=== PATIENT | female | born 1985 | race Caucasian/White ===

== ENCOUNTER → 2016-06-26 | Outpatient (CLI) | payer OTHER | LOC: MW.CHFP 12:25 | PROVIDERS: ATTEND Student in an Organized Health Care Education/Training Program | DX: J02.9 Acute pharyngitis, unspecified (principal); R52 Pain, unspecified | CPT/HCPCS: 87081; 87804; 87880 ==

== ENCOUNTER 2017-09-14 06:56 | Day surgery (SDC) | payer OTHER ==
[2017-09-14] MEDS ORDERED: Lactated Ringers 1,000 ML IV SCH (07:00)
[2017-09-14] MEDS ORDERED: Midazolam 1 MG/ML 2 ML SDV ONE (07:26)
[2017-09-14] MEDS ORDERED: Propofol 200 MG/20 ML SDV ONE (07:26)
[2017-09-14] MEDS ORDERED: fentaNYL 100 MCG/2 ML SDV ONE ×2 (07:26→07:59)
[2017-09-14] MEDS ORDERED: Lidocaine 2% 5 ML SDV ONE (07:28)
--- NOTE | 2017-09-14 07:28 | PCM.PREANE ---
Preanesthetic Assessment - Anesthesia/Transfusion/Family Hx Anesthesia History: Prior Anesthesia Without Reaction Family History of Anesthesia Reaction: No Transfusion History: No Prior Transfusion(s) Intubation History: Unknown - Review of Systems General: No Symptoms Pulmonary: No Symptoms Cardiovascular: No Symptoms Gastrointestinal: No Symptoms Neurological: No Symptoms Other: Reports: None - Physical Assessment Height: 1.74 m Weight: 75.75 kg ASA Class: 1 Mental Status: Alert & Oriented x3 Airway Class: Mallampati = 1 Dentition: Reports: Normal Dentition Thyro-Mental Finger Breadths: 2 Mouth Opening Finger Breadths: 3 ROM/Head Extension: Full Lungs: Clear to Auscultation, Normal Respiratory Effort Cardiovascular: Regular Rate, Regular Rhythm - Lab Values: Laboratory Last Values WBC 9.28 K/uL (4.0-11.0) 09/13/17 22:07 RBC 4.21 M/uL (4.30-5.90) L 09/13/17 22:07 Hgb 13.9 g/dL (12.0-16.0) 09/13/17 22:07 Hct 41.5 % (36.0-46.0) 09/13/17 22:07 MCV 98.6 fL (80.0-98.0) H 09/13/17 22:07 MCH 33.0 pg (27.0-32.0) H 09/13/17 22:07 MCHC 33.5 g/dL (31.0-37.0) 09/13/17 22:07 RDW Std Deviation 44.8 fl (28.0-62.0) 09/13/17 22:07 RDW Coeff of Soledad 12 % (11.0-15.0) 09/13/17 22:07 Plt Count 255 K/uL (150-400) 09/13/17 22:07 MPV 10.70 fL (7.40-12.00) 09/13/17 22:07 Nucleated RBC % 0.0 /100WBC 09/13/17 22:07 Nucleated RBCs # 0 K/uL 09/13/17 22:07 HCG, Qual NEGATIVE (NEG) 09/13/17 22:07 - Allergies Allergies/Adverse Reactions: Allergies Allergy/AdvReac Type Severity Reaction Status Date / Time No Known Allergies Allergy Verified 09/09/17 08:42 - Blood Blood Available: No - Anesthesia Plan Pre-Op Medication Ordered: None - Acknowledgements Anesthesia Type Planned: MAC Pt an Appropriate Candidate for the Planned Anesthesia: Yes Alternatives and Risks of Anesthesia Discussed w Pt/Guardian: Yes Pt/Guardian Understands and Agrees with Anesthesia Plan: Yes PreAnesthesia Questionnaire 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 benign tumor from her neck) - SUBSTANCE USE Smoking Status *Q: Former Smoker Recreational Drug Use History: No - HOME MEDS Home Medications: Home Meds Multivitamin [Multivitamins] 1 tab PO DAILY 09/09/17 [History] - CURRENT (IN HOUSE) MEDS Current Meds: Current Medications Lactated Ringer's (Ringers, Lactated) 1,000 mls @ 100 mls/hr IV ASDIRECTED JON
[2017-09-14] MEDS ORDERED: Ketorolac 30 MG/ML SDV ONE (08:17)
--- NOTE | 2017-09-14 08:35 | PCM.OPNOTE ---
- General Post-Op/Procedure Note Date of Surgery/Procedure: 09/14/17 Operative Procedure(s): LEEP Findings: Entire transformation examined by colposcopy findings of extensive HPV changes, with areas of acetowhite epithelium diffusely, at 12 o'clock friable AWE. Pre Op Diagnosis: ANIYAH II Post-Op Diagnosis: Same Anesthesia Technique: MAC Primary Surgeon: Caridad Ochoa Anesthesia Provider: Bridget Elise Pathology: ectocervix 12-7 o'clock labeled at 12 o'clock; ectocervix 7- 12o'clock, labeled at 9 o'clock, endocervical specimen, endocervical curettage Fluid Replacement, Intraop: 800 EBL in mLs: 10 Complications: None Known. Condition: Good
--- NOTE | 2017-09-14 08:59 | PCM.POSTAN ---
POST ANESTHESIA ASSESSMENT - MENTAL STATUS Mental Status: Alert, Oriented - RESPIRATORY Respiratory Status: Respiratory Rate WNL, Airway Patent, O2 Saturation Stable - CARDIOVASCULAR CV Status: Pulse Rate WNL - GASTROINTESTINAL GI Status: No Symptoms - PAIN Pain Score: 0 - POST OP HYDRATION Hydration Status: Adequate & Stable - OBSERVATIONS Free Text/Narrative:: no anesthesia problems
--- NOTE | 2017-09-14 10:21 | PCM48HPAN ---
Post Anesthesia Note - EVALUATION WITHIN 48HRS OF ANESTHETIC Vital Signs in Normal Range: Yes Patient Participated in Evaluation: Yes Respiratory Function Stable: Yes Airway Patent: Yes Cardiovascular Function Stable: Yes Hydration Status Stable: Yes Pain Control Satisfactory: Yes Nausea and Vomiting Control Satisfactory: Yes Mental Status Recovered: Yes Resp Rate: 10 - COMMENTS/OBSERVATIONS Free Text/Narrative:: no anesthesia problems
--- NOTE | 2017-09-14 13:11 | OR ---
SURGEON: Caridad Ochoa M.D. DATE OF PROCEDURE: 09/14/2017 PREOPERATIVE DIAGNOSIS: Cervical intraepithelial neoplasia 2. POSTOPERATIVE DIAGNOSIS: Cervical intraepithelial neoplasia 2. PROCEDURE: Loop electrode excisional procedure. ANESTHESIA: MAC with cervical block. ESTIMATED BLOOD LOSS: Less than 10 mL. FLUIDS: 800 mL of crystalloid. FINDINGS: Under colposcopic examination, there was a large ectropion well-defined with extensive HPV changes and diffuse intermittent areas of acetowhite epithelium throughout an area of friability from 11 o'clock to 1 o'clock. COMPLICATIONS: None known. DISPOSITION: Stable to recovery. BRIEF HISTORY: This is a 32-year-old female, she presented with low-grade SOFIYA Pap. Colposcopy showed ANIYAH 2. Discussed expected management, ablated for excisional procedure. She would like to proceed with a loop electrode excisional procedure with risks discussed including bleeding, infection, and potential for cervical incompetence with future , risk of injury to surrounding organs. Understanding these risks, she does desire to proceed. DESCRIPTION OF PROCEDURE: With the patient in dorsal lithotomy position, under adequate IV sedation, the LEEP speculum was placed into the vagina. The cervix was treated with dilute acetic acid and all this was initiated after an appropriate time-out was held. The cervix was inspected with the colposcope under low and high power and findings were as noted above. A total of 10 mL of 1% lidocaine with epinephrine were injected at 12, 5, and 7 o'clock position of the cervix. The cervix was grasped at 12 o'clock. Vaginal sidewall retractor, which was covered and non- conducting material as well as the LEEP speculum was placed into the vagina with excellent visualization of the cervix. Due to the large size of the ectropion, I did have to take the LEEP into specimens starting at the 12 o'clock position and proceeding downwards. I took the first specimen labeled from 12 to 7 o'clock incorporating the edge of the transition zone from 12 o'clock to 7 o'clock. The second specimen was taken starting at 12 o'clock and proceeding downwards incorporating the area from 7 o'clock to 12 o'clock and labeled as such. Marked at 9 o'clock. The first specimen was marked at 12 o'clock. A very small specimen was taken of the endocervix with a small LEEP loop and all of these were taken with the cutting and setting of 60, and endocervical curettage was performed and collected with a Cytobrush changing the setting on the electrical system to pure coag, setting of 60. The base of the LEEP site was cauterized with complete hemostasis. It was also treated with Monsel's solution, and final sponge, needle, and instrument counts were reported as correct. There were no known complications. The patient was transferred to recovery in good condition. Specimens are ectocervix from 12 to 7 o'clock, labeled at 12 o'clock; ectocervix from 7 to 12 o'clock, labeled at 9 o'clock; endocervix and endocervical curettings. ERICA / MARILEE /[id number]
== END 2017-09-14 10:30 | disposition home or self-care (01) ==
LOC: MW.SDS 06:56
PROVIDERS: ATTEND Obstetrics & Gynecology
DX: N87.1 Moderate cervical dysplasia (principal); N72 Inflammatory disease of cervix uteri; Z91.011 Allergy to milk products; Z91.09 Other allergy status, other than to drugs and biological substances
CPT/HCPCS: 36415; 57522; 84703; 85027; J1885; J2250; J3010; J7120; 00940; 88305; 88307; J2704

== ENCOUNTER 2018-11-22 16:29 | Emergency (ER) | payer OTHER ==
[2018-11-22] MEDS ORDERED: Sodium Chloride 0.9% 2.5 ML Syringe FLUSH PRN (16:42)
[2018-11-22] MEDS ORDERED: Sodium Chloride 0.9% 1,000 ML IV ONE (16:42)
[2018-11-22] MEDS ORDERED: Sodium Chloride 0.9% 10 ML Syringe FLUSH PRN (16:42)
--- NOTE | 2018-11-22 16:42 | EDM.PDOC ---
ED HPI GENERAL MEDICAL PROBLEM - General Chief Complaint: Cardiovascular Problem Stated Complaint: HIGH BP Time Seen by Provider: 11/22/18 16:41 Source of Information: Reports: Patient History Limitations: Reports: No Limitations - History of Present Illness INITIAL COMMENTS - FREE TEXT/NARRATIVE: HISTORY AND PHYSICAL: History of present illness: Patient is a 33-year-old female presents to the ED with complaint of high blood pressure. She states she was seeing Dr. Quintanilla this morning for follow up on a breast cyst and her blood pressure was elevated to 190/60. She states she hasn' t been feeling well recently. Has had a headache on and off for a few days. She states she currently has a mild headache and mild chest pain as well as a tingling in to her left arm. She has felt her heart racing occasionally. She denies shortness of breath, nausea, vomiting, abdominal pain, diarrhea, visual changes. She denies significant past medical history. Review of systems: As per history of present illness and below otherwise all systems reviewed and negative. Past medical history: As per history of present illness and as reviewed below otherwise noncontributory. Surgical history: As per history of present illness and as reviewed below otherwise noncontributory. Social history: No reported history of drug or alcohol abuse. Family history: As per history of present illness and as reviewed below otherwise noncontributory. Physical exam: General: Patient sitting comfortably in no acute distress and nontoxic appearing HEENT: Atraumatic, normocephalic, pupils reactive, negative for conjunctival pallor or scleral icterus, mucous membranes moist, throat clear, neck supple, nontender, trachea midline. No meningeal signs. Lungs: Clear to auscultation, breath sounds equal bilaterally, chest nontender. Heart: S1S2, regular, negative for clicks, rubs, or overt murmur. Abdomen: Soft, nondistended, nontender. Negative for masses or hepatosplenomegaly. Negative for costovertebral tenderness. No rigidity, rebound , guarding. Pelvis: Stable nontender. Genitourinary: Deferred. Rectal: Deferred. Extremities: Atraumatic, negative for cords or calf pain. Neurovascular unremarkable. Neuro: Awake, alert, oriented. Cranial nerves II through XII unremarkable. Cerebellum unremarkable. Motor and sensory unremarkable throughout. Exam nonfocal. Notes: Elevated blood pressure resolved on it's own after patient resting. Diagnostics: CBC, CMP, troponin, PT/INR, EKG, CXR Therapeutics: Declined aspirin Prescriptions: Impression: Hypertension, atypical chest pain Plan: Follow up with primary care provider Return to ED as needed as discussed Definitive disposition and diagnosis as appropriate pending reevaluation and review of above. 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 benign tumor from her neck) ED ROS GENERAL - Review of Systems Review Of Systems: ROS reveals no pertinent complaints other than HPI. ED EXAM, GENERAL - Physical Exam Exam: See Below (see dictation) Course - Vital Signs Last Recorded V/S: Last Vital Signs Temp 98.2 F 11/22/18 16:35 Pulse 74 11/22/18 17:28 Resp 18 11/22/18 17:28 BP 130/82 11/22/18 17:28 Pulse Ox 98 11/22/18 17:28 - Orders/Labs/Meds Orders: Active Orders 24 hr Category Date Time Status EKG Documentation Completion [RC] STAT Care 11/22/18 16:42 Active Sodium Chloride 0.9% [Saline Flush] Med 11/22/18 16:42 Active 10 ml FLUSH ASDIRECTED PRN Sodium Chloride 0.9% [Saline Flush] Med 11/22/18 16:42 Active 2.5 ml FLUSH ASDIRECTED PRN Saline Lock Insert [OM.PC] Stat Oth 11/22/18 16:42 Ordered Medication Orders Sodium Chloride (Saline Flush) 10 ml FLUSH ASDIRECTED PRN PRN Reason: Keep Vein Open Last Admin: 11/22/18 16:56 Dose: 10 ml Sodium Chloride (Saline Flush) 2.5 ml FLUSH ASDIRECTED PRN PRN Reason: Keep Vein Open Last Admin: 11/22/18 16:56 Dose: 2.5 ml Labs: Laboratory Tests 11/22/18 11/22/18 11/22/18 Range/Units 16:55 16:55 16:55 WBC 8.21 (4.0-11.0) K/uL RBC 4.29 L (4.30-5.90) M/uL Hgb 14.3 (12.0-16.0) g/dL Hct 40.9 (36.0-46.0) % MCV 95.3 (80.0-98.0) fL MCH 33.3 H (27.0-32.0) pg MCHC 35.0 (31.0-37.0) g/dL RDW Std Deviation 39.8 (28.0-62.0) fl RDW Coeff of Soledad 12 (11.0-15.0) % Plt Count 247 (150-400) K/uL MPV 10.10 (7.40-12.00) fL Neut % (Auto) 50.9 (48.0-80.0) % Lymph % (Auto) 38.9 (16.0-40.0) % [place] % (Auto) 8.4 (0.0-15.0) % Eos % (Auto) 1.7 (0.0-7.0) % Baso % (Auto) 0.1 (0.0-1.5) % Neut # (Auto) 4.2 (1.4-5.7) K/uL Lymph # (Auto) 3.2 H (0.6-2.4) K/uL [place] # (Auto) 0.7 (0.0-0.8) K/uL Eos # (Auto) 0.1 (0.0-0.7) K/uL Baso # (Auto) 0.0 (0.0-0.1) K/uL INR 1.06 Sodium 140 (136-145) mmol/L Potassium 3.6 (3.5-5.1) mmol/L Chloride 105 (98-107) mmol/L Carbon Dioxide 24.9 (21.0-32.0) mmol/L BUN 11 (7.0-18.0) mg/dL Creatinine 0.8 (0.6-1.0) mg/dL Est Cr Clr Drug Dosing 102.58 mL/min Estimated GFR (MDRD) > 60.0 ml/min Glucose 103 (74-106) mg/dL Calcium 9.2 (8.5-10.1) mg/dL Total Bilirubin 0.3 (0.2-1.0) mg/dL AST 18 (15-37) IU/L ALT 20 (14-63) IU/L Alkaline Phosphatase 81 (46-116) U/L Troponin I < 0.050 (0.000-0.056) ng/mL Total Protein 7.0 (6.4-8.2) g/dL Albumin 3.9 (3.4-5.0) g/dL Globulin 3.1 (2.6-4.0) g/dL Albumin/Globulin Ratio 1.3 (0.9-1.6) Meds: Medications Generic Name Dose Route Start Last Admin Trade Name Freq PRN Reason Stop Dose Admin Sodium Chloride 10 ml 11/22/18 16:42 11/22/18 16:56 Saline Flush FLUSH 10 ml ASDIRECTED PRN Administration Keep Vein Open Sodium Chloride 2.5 ml 11/22/18 16:42 11/22/18 16:56 Saline Flush FLUSH 2.5 ml ASDIRECTED PRN Administration Keep Vein Open Discontinued Medications Generic Name Dose Route Start Last Admin Trade Name Freq PRN Reason Stop Dose Admin Sodium Chloride 1,000 mls @ 999 mls/hr 11/22/18 16:42 11/22/18 16:55 Normal Saline IV 11/22/18 17:42 999 mls/hr BOLUS ONE Administration Departure - Departure Time of Disposition: 18:00 Disposition: Home, Self-Care 01 Condition: Good Clinical Impression: High blood pressure, Atypical chest pain Referrals: PCP,Unknown [Primary Care Provider] - Forms: ED Department Discharge Additional Instructions: The following information is given to patients seen in the emergency department who are being discharged to home. This information is to outline your options for follow-up care. We provide all patients seen in our emergency department with a follow-up referral. The need for follow-up, as well as the timing and circumstances, are variable depending upon the specifics of your emergency department visit. If you don't have a primary care physician on staff, we will provide you with a referral. We always advise you to contact your personal physician following an emergency department visit to inform them of the circumstance of the visit and for follow-up with them and/or the need for any referrals to a consulting specialist. The emergency department will also refer you to a specialist when appropriate. This referral assures that you have the opportunity for follow-up care with a specialist. All of these measure are taken in an effort to provide you with optimal care, which includes your follow-up. Under all circumstances we always encourage you to contact your private physician who remains a resource for coordinating your care. When calling for follow-up care, please make the office aware that this follow-up is from your recent emergency room visit. If for any reason you are refused follow-up, please contact the [facility] Emergency Department at and asked to speak to the emergency department charge nurse. [facility] [address] [place] [id number] [address] Follow up with primary care provider Return to ED as needed as discussed - My Orders Last 24 Hours: My Active Orders 11/22/18 16:42 EKG Documentation Completion [RC] STAT Sodium Chloride 0.9% [Saline Flush] 10 ml FLUSH ASDIRECTED PRN Sodium Chloride 0.9% [Saline Flush] 2.5 ml FLUSH ASDIRECTED PRN Saline Lock Insert [OM.PC] Stat - Assessment/Plan Last 24 Hours: My Active Orders 11/22/18 16:42 EKG Documentation Completion [RC] STAT Sodium Chloride 0.9% [Saline Flush] 10 ml FLUSH ASDIRECTED PRN Sodium Chloride 0.9% [Saline Flush] 2.5 ml FLUSH ASDIRECTED PRN Saline Lock Insert [OM.PC] Stat
--- NOTE | 2018-11-22 17:35 | CR ---
INDICATION: High BP TECHNIQUE: Chest 1 view. COMPARISON: None. FINDINGS: Cardiovascular and mediastinum: Heart size and vasculature are normal in caliber and appearance. Mediastinum is within normal limits. Lungs and pleural space: Lungs are clear. No sign of infiltrate or mass. No sign of pleural effusion. No pneumothorax. Bones and soft tissues: No significant findings. IMPRESSION: Unremarkable chest. Dictated by: Elpidio Springer MD @ 11/22/2018 17:34:52 (Electronically Signed)
[2018-11-22 17:50] LABS: BLOOD UREA NITROGEN,BUN 11 mg/dL (7.0-18.0); CARBON DIOXIDE,CO2 24.9 mmol/L (21.0-32.0); CHLORIDE,CL 105 mmol/L (98-107); GLUCOSE RANDOM 103 mg/dL (74-106); POTASSIUM,K 3.6 mmol/L (3.5-5.1); SODIUM,NA 140 mmol/L (136-145)
== END 2018-11-22 18:13 | disposition home or self-care (01) ==
LOC: MW.ED 16:29
DX: I10 Essential (primary) hypertension (principal); R07.89 Other chest pain
CPT/HCPCS: 36415; 71045; 80053; 84484; 85025; 85610; 93005; 96360; 99284; J7040

== ENCOUNTER 2019-04-13 08:32 | Emergency (ER) | payer OTHER ==
[2019-04-13] MEDS ORDERED: Sodium Chloride 0.9% 1,000 ML IV ONE (09:02)
[2019-04-13] MEDS ORDERED: Alum Hydrox/Mag Hydrox/Simeth 15 ML, Lidocaine 2% 5 ML PO ONE ×2 (09:02)
[2019-04-13] MEDS ORDERED: Dexamethasone 4 MG Tab PO ONE (09:06)
[2019-04-13] MEDS ORDERED: Ondansetron 4 MG/2 ML SDV IVPUSH ONE (09:18)
[2019-04-13] MEDS ORDERED: Ondansetron 4 MG/2 ML SDV ONE (09:18)
[2019-04-13 09:51] LABS: BLOOD UREA NITROGEN,BUN 7 mg/dL (7.0-18.0); CARBON DIOXIDE,CO2 28.4 mmol/L (21.0-32.0); CHLORIDE,CL 100 mmol/L (98-107); GLUCOSE RANDOM 116 mg/dL (74-106); POTASSIUM,K 3.7 mmol/L (3.5-5.1); SODIUM,NA 136 mmol/L (136-145)
[2019-04-13 10:04] LABS: ACETAMINOPHEN <2.0 ug/mL
[2019-04-13] MEDS ORDERED: Iopamidol 755 MG/ML 500 ML Multipack Bottle IVPUSH STA (10:42)
--- NOTE | 2019-04-13 11:49 | CT ---
INDICATION: Severe pharyngitis. Marked leukocytosis. Upper tracheal/neck discomfort. Lemierre syndrome? TECHNIQUE: CT images were obtained through the neck following administration of intravenous contrast. COMPARISON: None. FINDINGS: Markedly enlarged palatine and lingual tonsils demonstrating striated enhancement. Mild associated narrowing of the oropharyngeal airway. The parapharyngeal fat is preserved. No retropharyngeal effusion. No discrete peripherally enhancing fluid collection to suggest abscess. The nasopharynx and larynx are widely patent without enhancing lesions. The parotid and submandibular glands are relatively symmetric in size without enhancing lesions or calcifications. Enlarged bilateral cervical lymph nodes measuring up to 21 mm on the right and left at the level IIa norman station. The thyroid gland is normal in size and demonstrates homogeneous enhancement. Limited images through the brain are without intracranial mass effect. The internal jugular veins are widely patent. Mild right maxillary and right ethmoid sinus mucosal thickening. The mastoid air cells are clear. Temporomandibular joint degenerative changes bilaterally. Mild reversal of the cervical lordosis at C4-5, potentially related to patient position or muscle spasm. The visualized lungs are without concerning opacities. IMPRESSION: 1. Markedly enlarged palatine and lingual tonsils demonstrating striated enhancement, compatible with tonsillitis. Mild associated narrowing of the oropharyngeal airway. No discrete fluid collection to suggest abscess. 2. Enlarged bilateral cervical lymph nodes, notably at the level IIa norman stations, are nonspecific though likely reactive. 3. The internal jugular veins are widely patent. Please note that all CT scans at this facility use dose modulation, iterative reconstruction, and/or weight-based dosing when appropriate to reduce radiation dose to as low as reasonably achievable. Dictated by Raimundo Sidhu MD @ Apr 13 2019 11:37AM Signed by Dr. Raimundo Sidhu @ Apr 13 2019 11:48AM
--- NOTE | 2019-04-13 12:25 | EDM.PDOC ---
ED HPI GENERAL MEDICAL PROBLEM - General Chief Complaint: ENT Problem Stated Complaint: STREP THROAT Time Seen by Provider: 04/13/19 08:36 - History of Present Illness INITIAL COMMENTS - FREE TEXT/NARRATIVE: HPI 34-year-old female presents for evaluation of 3 days of sore throat, pain on swallowing, and intermittent fevers that are NSAID responsive. New sexual partner as of 6 months, low-no concern for STDs. No recent travel. No immunocompromise. Vaccinations up-to-date. No headaches or changes in vision or hearing. Patient is been alternating ibuprofen and acetaminophen Q2 hours (4 hours between doses of either). M/S/F/SocHx notable for: please see HPI; remainder reviewed with patient and in chart. ROS: Negative constitutional, eye, cardiovascular, pulmonary, GI, , MSK, skin , neurologic, psychiatric, endocrine unless noted in the HPI. Exam HR 102, RR 18, BP 125 or 79, T 36.7C, SaO2 9 & room air. Gen: Pleasant, non-toxic appearing, resting in mild-moderate discomfort. HEENT: Normocephalic, atraumatic. * Ears - TMs clear bilaterally, bilateral external auditory canals without erythema, inflammation, or swelling, bilateral mastoids nontender without overlying erythema, swelling, or warmth. * Eyes - Bilateral eyes without injection, swelling, or discharge, no proptosis or periorbital erythema, swelling, warmth, or tenderness. * Mouth - Anterior oropharynx with MMM, no lesions appreciated, floor of the mouth is soft and without swelling. Posterior oropharynx bilateral tonsillar arches/pillars with exudate and mild surrounding erythema, uvula midline, minimal and symmetric tonsillar swelling. * Nose - Nares without crusting or discharge. * Neck - Neck supple without posterior or anterior cervical chain lymphadenopathy bilaterally. Resp: Clear to auscultation bilaterally, normal work of breathing without accessory muscle usage. Card: Regular rate and rhythm with no murmurs, rubs or gallops. Extremities warm and well perfused. GI: Non-tender to palpation throughout all quadrants, no masses or organomegaly appreciated. : Deferred MSK: No visible deformities, strength and tone without visually appreciable deficit. Neuro: alert and oriented 3, no facial asymmetry, vision and hearing WNL. Heme/Lymph: Deferred Skin: Normal color with no visible lesions (other than noted above). Psych: Mood and affect appropriate. Labs / Imaging (pertinent): negative group a strep screen. Influenza A & B negative. Monospot negative WBC 23.4, HB 14.8, sodium 136, potassium 3.7, AST 30, ALT 36. PT/INR 1.07, PTT 33.7, acetaminophen <2.0. CT neck with contrast: 1. Markedly enlarged palatine and lingual tonsils demonstrating striated enhancement, compatible with tonsillitis. Mild associated narrowing of the oropharyngeal airway. No discrete fluid collection to suggest abscess. 2 Enlarged bilateral cervical lymph nodes, notably at the level [place] norman stations, are nonspecific though likely reactive. 3. The internal jugular veins are widely patent. MDM Previous chart, nursing note, labs, imaging, and vitals reviewed. A: 34-year-old female presents for evaluation of 3 days of sore throat, pain on swallowing, and intermittent fevers that are NSAID responsive. DDx: pharyngitis (HSV vs viral NOS vs GAS vs gonoccocal vs bacterial NOS)], EBV , HIV[ candidiasi, sinusitis (bacterial, viral), peritonsillar cellulitis, WEB [employer]PLICATION[employer] ARCHITECT, RPA, Pravin's angina, epiglottitis. Evaluation: patient uncomfortable well compensated appearance, notable bilateral tonsillar exudate without physical exam findings of further complications. No identifiable high-risk features on sexual history for gonococcal pharyngitis, herpes, or HIV. Lesions are not visually consistent with candidiasis. Low suspicion for peritonsillar cellulitis or abscess given the absence of asymmetric swelling or uvular deviation, RPA is unlikely as the patient can comfortably flex and extend their neck and swallow without difficulty. As phonation is intact and breathing is unlabored doubt epiglottitis. The floor of the mouth is without evidence of Pravin's angina. Note was made of the significant leukocytosis and tonsillar swelling, imaging was obtained to evaluate for Lemierres disease (as well further convocations), this was notable for enlarged palatine and lingual tonsils with striated enhancement without evidence of abscess, Lemierres disease, Ludgwigs angina, or tracheitis. No evidence of septicemia by exam, lactic acid, and clinical trajectory. Due to concerns for the patient possibly taking excessive acetaminophen liver enzymes were checked as well as acetaminophen levels, these were within normal limits. ED Course: No clinically significant changes. Patient given 12 mg dexamethasone PO and 1 L NS (patient took ibuprofen and acetaminophen prior to arrival). Patient or significant improvement in symptoms with these interventions. Disposition: Discharge with return to care as needed. Return to care indications provided. Strike to use scheduled ibuprofen and acetaminophen and continue amoxicillin. Impression: Pharyngitis. throat Pain Score (Numeric/FACES): 7 - Related Data Allergies Allergy/AdvReac Type Severity Reaction Status Date / Time No Known Allergies Allergy Verified 04/13/19 08:39 Home Meds: Home Meds Multivitamin [Multivitamins] 1 tab PO DAILY 09/09/17 [History] Amoxicillin/Potassium Clav [Amox-Clav 875-125 mg Tablet] 1 tab PO BID 04/13/19 [ History] Past Medical History HEENT History: Reports: None Cardiovascular History: Reports: None Respiratory History: Reports: None Gastrointestinal History: Reports: None Genitourinary History: Reports: None TOMOGRAPHIC TECH History: Reports: Polycystic Ovaries Musculoskeletal History: Reports: None Neurological History: Reports: None Psychiatric History: Reports: None Endocrine/Metabolic History: Reports: None Hematologic History: Reports: None Immunologic History: Reports: None Oncologic (Cancer) History: Reports: None Dermatologic History: Reports: Eczema - Infectious Disease History Infectious Disease History: Reports: Chicken Pox - Past Surgical History Head Surgeries/Procedures: Reports: None HEENT Surgical History: Reports: None Cardiovascular Surgical History: Reports: None Respiratory Surgical History: Reports: None GI Surgical History: Reports: None Female Surgical History: Reports: None Endocrine Surgical History: Reports: None Neurological Surgical History: Reports: None Musculoskeletal Surgical History: Reports: Other (See Below) Other Musculoskeletal Surgeries/Procedures:: tumor removed from neck Oncologic Surgical History: Reports: None Dermatological Surgical History: Reports: Other (See Below) Social & Family History - Family History Family Medical History: Noncontributory - Tobacco Use Smoking Status *Q: Current Some Day Smoker Years of Tobacco use: 5 Packs/Tins Daily: 0.1 - Caffeine Use Caffeine Use: Reports: Tea - Recreational Drug Use Recreational Drug Use: No ED ROS GENERAL - Review of Systems Review Of Systems: See Below ED EXAM, GENERAL - Physical Exam Exam: See Below Course - Vital Signs Last Recorded V/S: Last Vital Signs Temp 36.7 C 04/13/19 08:40 Pulse 102 H 04/13/19 08:40 Resp 18 04/13/19 08:40 BP 125/79 04/13/19 08:40 Pulse Ox 99 04/13/19 08:40 - Orders/Labs/Meds Orders: Active Orders 24 hr Category Date Time Status CULTURE STREP A CONFIRMATION [] Stat Lab 04/13/19 09:21 Results STREP SCRN A RAPID W CULT CONF [] Stat Lab 04/13/19 09:21 Results Labs: Laboratory Tests 04/13/19 04/13/19 04/13/19 Range/Units 09:13 09:13 09:13 WBC 23.42 H (4.0-11.0) K/uL RBC 4.49 (4.30-5.90) M/uL Hgb 14.8 (12.0-16.0) g/dL Hct 43.3 (36.0-46.0) % MCV 96.4 (80.0-98.0) fL MCH 33.0 H (27.0-32.0) pg MCHC 34.2 (31.0-37.0) g/dL RDW Std Deviation 46.2 (28.0-62.0) fl RDW Coeff of Soledad 13 (11.0-15.0) % Plt Count 238 (150-400) K/uL MPV 10.60 (7.40-12.00) fL Add Manual Diff YES Neutrophils % (Manual) 78 (48.0-80.0) % Band Neutrophils % 4 % Lymphocytes % (Manual) 9 L (16.0-40.0) % Monocytes % (Manual) 9 (0.0-15.0) % Nucleated RBC % 0.0 /100WBC Absolute Seg Neuts 18.3 H (1.4-5.7) Band Neutrophils # 0.9 Lymphocytes # (Manual) 2.1 (0.6-2.4) Monocytes # (Manual) 2.1 H (0.0-0.8) Nucleated RBCs # 0 K/uL INR APTT (18.6-31.3) SEC Lactate (0.20-2.00) mmol/L Sodium 136 (136-145) mmol/L Potassium 3.7 (3.5-5.1) mmol/L Chloride 100 (98-107) mmol/L Carbon Dioxide 28.4 (21.0-32.0) mmol/L BUN 7 (7.0-18.0) mg/dL Creatinine 0.9 (0.6-1.0) mg/dL Est Cr Clr Drug Dosing 90.31 mL/min Estimated GFR (MDRD) > 60.0 ml/min Glucose 116 H (74-106) mg/dL Calcium 8.9 (8.5-10.1) mg/dL AST (15-37) IU/L ALT (14-63) IU/L Acetaminophen ug/mL Monoscreen NEGATIVE (NEG) 04/13/19 04/13/19 04/13/19 Range/Units 09:31 09:31 09:31 WBC (4.0-11.0) K/uL RBC (4.30-5.90) M/uL Hgb (12.0-16.0) g/dL Hct (36.0-46.0) % MCV (80.0-98.0) fL MCH (27.0-32.0) pg MCHC (31.0-37.0) g/dL RDW Std Deviation (28.0-62.0) fl RDW Coeff of Soledad (11.0-15.0) % Plt Count (150-400) K/uL MPV (7.40-12.00) fL Add Manual Diff Neutrophils % (Manual) (48.0-80.0) % Band Neutrophils % % Lymphocytes % (Manual) (16.0-40.0) % Monocytes % (Manual) (0.0-15.0) % Nucleated RBC % /100WBC Absolute Seg Neuts (1.4-5.7) Band Neutrophils # Lymphocytes # (Manual) (0.6-2.4) Monocytes # (Manual) (0.0-0.8) Nucleated RBCs # K/uL INR 1.07 APTT 33.7 H (18.6-31.3) SEC Lactate (0.20-2.00) mmol/L Sodium (136-145) mmol/L Potassium (3.5-5.1) mmol/L Chloride (98-107) mmol/L Carbon Dioxide (21.0-32.0) mmol/L BUN (7.0-18.0) mg/dL Creatinine (0.6-1.0) mg/dL Est Cr Clr Drug Dosing mL/min Estimated GFR (MDRD) ml/min Glucose (74-106) mg/dL Calcium (8.5-10.1) mg/dL AST 30 (15-37) IU/L ALT 36 (14-63) IU/L Acetaminophen <2.0 ug/mL Monoscreen (NEG) 04/13/19 Range/Units 10:40 WBC (4.0-11.0) K/uL RBC (4.30-5.90) M/uL Hgb (12.0-16.0) g/dL Hct (36.0-46.0) % MCV (80.0-98.0) fL MCH (27.0-32.0) pg MCHC (31.0-37.0) g/dL RDW Std Deviation (28.0-62.0) fl RDW Coeff of Soledad (11.0-15.0) % Plt Count (150-400) K/uL MPV (7.40-12.00) fL Add Manual Diff Neutrophils % (Manual) (48.0-80.0) % Band Neutrophils % % Lymphocytes % (Manual) (16.0-40.0) % Monocytes % (Manual) (0.0-15.0) % Nucleated RBC % /100WBC Absolute Seg Neuts (1.4-5.7) Band Neutrophils # Lymphocytes # (Manual) (0.6-2.4) Monocytes # (Manual) (0.0-0.8) Nucleated RBCs # K/uL INR APTT (18.6-31.3) SEC Lactate 1.3 (0.20-2.00) mmol/L Sodium (136-145) mmol/L Potassium (3.5-5.1) mmol/L Chloride (98-107) mmol/L Carbon Dioxide (21.0-32.0) mmol/L BUN (7.0-18.0) mg/dL Creatinine (0.6-1.0) mg/dL Est Cr Clr Drug Dosing mL/min Estimated GFR (MDRD) ml/min Glucose (74-106) mg/dL Calcium (8.5-10.1) mg/dL AST (15-37) IU/L ALT (14-63) IU/L Acetaminophen ug/mL Monoscreen (NEG) Meds: Medications Discontinued Medications Generic Name Dose Route Start Last Admin Trade Name Freq PRN Reason Stop Dose Admin Al Hydroxide/Mg Hydroxide 15 0 ml 04/13/19 09:02 04/13/19 09:16 ml/ Lidocaine HCl 5 ml PO 04/13/19 09:03 20 each ONETIME ONE Administration Dexamethasone 12 mg 04/13/19 09:01 04/13/19 09:18 Dexamethasone PO 04/13/19 09:02 Not Given ONETIME ONE Dexamethasone 12 mg 04/13/19 09:06 04/13/19 09:19 Dexamethasone PO 04/13/19 09:07 12 mg ONETIME ONE Administration Sodium Chloride 1,000 mls @ 1,000 mls/hr 04/13/19 09:02 04/13/19 09:16 Normal Saline IV 04/13/19 10:01 1,000 mls/hr .Bolus ONE Administration Iopamidol 80 ml 04/13/19 10:42 04/13/19 11:11 Isovue Multipack-370 (76%) IVPUSH 04/13/19 10:43 80 ml ONETIME STA Administration Ondansetron HCl 4 mg 04/13/19 09:18 04/13/19 09:18 Zofran IVPUSH 04/13/19 09:19 4 mg ONETIME ONE Administration Ondansetron HCl Confirm 04/13/19 09:18 04/13/19 09:35 Zofran Administered 04/13/19 09:19 Not Given Dose 4 mg .ROUTE .STK-MED ONE Departure - Departure Time of Disposition: 12:25 Disposition: Home, Self-Care 01 Clinical Impression: Pharyngitis - Discharge Information Referrals: PCP,None [Primary Care Provider] - Additional Instructions: You were in seen in the [facility] Emergency Department for evaluation of threat were found have pharyngitis. At the time of your evaluation the cause of your franchise is unclear. This may be due to a bacterial or viral illness. Please continue taking your amoxicillin as prescribed, you may take ibuprofen and acetaminophen as directed below for treatment of pain. Please read and follow all of the instructions below. Please follow up with your primary care physician in 36-48 hours repeat evaluation. When calling for follow-up care, please make the office aware that this follow-up is from your recent emergency room visit. If for any reason you are refused follow-up, please contact the [facility] Emergency Department at and asked to speak to the emergency department charge nurse. Your care today was limited to identifying and treating emergent medical problems only. Many people have subtle differences in their test results that require follow up with their outpatient physician(s) to correctly determine if this represents a normal variation or concerning abnormality with respect to your specific health. The care given to you today was limited to identifying and treating emergent medical problems - you need to request a copy of all of your medical records from today's visit and follow up with your outpatient physician(s) to review both today's visit and your overall health. If you have any new symptoms or if you are at all concerned about your health please return immediately to the emergency department. Prescriptions: If you are uninsured or have financial difficulties with filling your prescription(s), you may consider using a free pharmacy discount service such as [employer] ([employer]) or [employer] ([employer]). These services allow you to search for a medication on your phone (or computer) and obtain a coupon that usually has a significant discount from the list flannery at a pharmacy. Your physician as well as [facility] does not have a financial relationship with either of these services. You may also wish to speak with your physician to determine if lower cost prescriptions are possible. Obtaining primary care: 1. [facility] provides pediatrics (children), family medicine (children, adults, and some obstetrical care), and internal medicine (adults). Further specialty care is also available. Same day appointments are available. They may be contacted at [phone] and are open Thursday through Thursday 8 AM to 5 PM. The [facility] are located at [facility], [address] [place] [address]. 2. [facility] offers family medicine, internal medicine, womens health, and further specialty care. [facility] may be contacted at [phone]. [facility] is located at [address] [place], [address]. 3. If you have health insurance, please also contact your insurer for a list of accepting providers under your policy, you may contact these providers for further health care. Occupational health: Work related injuries may consider following up with [facility], . Occupational health services are located at [address] [place] [address] and are open Thursday through Thursday from 7: 30 am to 5:00 pm. Obstetrical and Gynecological Care: [facility], , Thursday through Thursday 8 AM to 5 PM. [address] [address]. Eyecare: If you have an eye injury you should follow up with your embedded software design engineer or with [facility], at [phone] or [phone] , they are located at [address] [place] [address]. [facility] Talley DDS. [address] [place], [place]. Ph. [phone] Ed Talley DDS MS. [address] [facility] [address], [place], [place]. Ph. Naif Mondragon DDS. [address] [place] [address]. Ph. [phone] Kwaku Keller DDS. [address] [facility] 4 [place], [place]. Ph. [phone] Vipin Bardales DDS PC. [address] [facility] [address] [place], [place]. Ph. [phone] Gali Curry DDS. [address] [facility]. Ph. [phone] [facility]. [address] [place], [place]. Ph. [phone] [facility]. [address] [place] [address], [place], [place]. Ph. [phone] [facility] [address] [place] [address]. Ph. [phone] [facility]. [address] [place] [address] [address] [place], [place]. Ph. [phone] [facility]. [address] [place], [place]. Ph. [phone] Pharyngitis You have a severe sore throat caused by a viral or bacterial infection. These infections usually get better in 4-7 days with supportive care. You may use the following to reduce your pain: Ibuprofen 600 mg every 6-8 hours. Acetaminophen 1,000 mg every 6 hours. Over the counter throat lozenges. Warm liquids with honey may help. Please return to the emergency department if you develop any of the following: Difficulty swallowing One tonsil that is much larger than the other. Pain on flexing your neck or difficulty bending your neck Swelling below your tongue Rash Red or brown urine High fevers or chills If you are otherwise concerned about your health Please call your primary care physician if you are not feeling much better in 4 days. You make take over the counter Acetaminophen (Tylenol) and Ibuprofen (Motrin or Aleve) as directed below for relief of pain. Take 600 mg of ibuprofen (three 200 mg tablets) with a glass of water every 6-8 hours as needed for pain or fever. Do not take if you have ulcers, GI bleeding, are , or are allergic to ibuprofen. Take 1,000 mg of acetaminophen (two 500 mg tablets) with a glass of water every 6-8 hours as needed for pain. Do not take if you are allergic to acetaminophen. If you have liver disease, please reduce your dose to a maximum of 2,000 mg per day. You can take these medications at the same time or on separate schedules. Do not take for more than 10 days. Do not take with alcohol or other acetaminophen containing medications. This medication may cause a mildly upset stomach, if so take it with a small snack. Stop taking it if you have persistent abdominal pain, heartburn, or any stomach pain. Do not take this medication if you have known ulcers. Please read the warnings at the end of this document regarding these medications. IBUPROFEN WARNING: This drug may infrequently cause serious (rarely fatal) bleeding from the stomach or intestines. Also, related drugs rarely have caused blood clots to form, resulting in heart attacks and strokes. This medication might also rarely cause similar problems. Talk to your doctor or pharmacist about the benefits and risks of treatment, as well as other possible medication choices. If you notice any of the following rare but very serious side effects, stop taking ibuprofen and seek immediate medical attention: black stools, persistent stomach/abdominal pain, vomit that looks like coffee grounds, chest pain, weakness on one side of the body, sudden vision changes, slurred speech. IBUPROFEN SIDE EFFECTS: Upset stomach, nausea, vomiting, heartburn, headache, diarrhea, constipation, drowsiness, and dizziness may occur. If any of these effects persist or worsen, notify your doctor or pharmacist promptly. If your doctor has directed you to use this medication, remember that he or she has judged that the benefit to you is greater than the risk of side effects. Many people using this medication do not have serious side effects. Tell your doctor immediately if any of these serious side effects occur: stomach pain, swelling of the hands or feet, sudden or unexplained weight gain, ringing in the ears ( tinnitus). Tell your doctor immediately if any of these unlikely but serious side effects occur: vision changes, rapid or pounding heartbeat, easy bruising or bleeding, difficult/painful swallowing. Tell your doctor immediately if any of these highly unlikely but very serious side effects occur: change in amount of urine, severe headache, very stiff neck, mental/mood changes, persistent sore throat or fever. This drug may rarely cause serious (possibly fatal) liver disease. If you notice any of the following highly unlikely but very serious side effects, stop taking ibuprofen and consult your doctor or pharmacist immediately: yellowing eyes and skin, dark urine, unusual/extreme tiredness. An allergic reaction to this drug is unlikely, but seek immediate medical attention if it occurs. Symptoms of an allergic reaction include: rash, itching/ swelling (especially of the face/tongue/throat), severe dizziness, trouble breathing. This is not a complete list of possible side effects. ACETAMINOPHEN SIDE EFFECTS: This drug usually has no side effects. If you do not have liver problems, the maximum dose of acetaminophen for adults is 4 grams per day (4000 milligrams). Taking more than the maximum daily amount may cause serious (possibly fatal) liver damage. Get medical help right away if you have any of the following symptoms of liver damage: persistent nausea/vomiting, extreme tiredness, stomach/abdominal pain, yellowing eyes/skin, dark urine. If you have liver problems, consult your doctor or pharmacist for a safe dosage of this medication. A very serious allergic reaction to this drug is rare. However , get medical help right away if you notice any symptoms of a serious allergic reaction, including: rash, itching/swelling (especially of the face/tongue/ throat), severe dizziness, trouble breathing. This is not a complete list of possible side effects. If you notice other effects not listed above, contact your doctor or pharmacist. DRUG INTERACTIONS: Your healthcare professionals (e.g., doctor or pharmacist) may already be aware of any possible drug interactions and may be monitoring you for it. Do not start, stop or change the dosage of any medicine before checking with them first. This drug should not be used with the following medications because very serious interactions may occur: cidofovir, ketorolac. If you are currently using any of these medications listed above, tell your doctor or pharmacist before starting ibuprofen. Before using this medication, tell your doctor or pharmacist of all prescription and nonprescription/herbal products you may use, especially of: anti-platelet drugs (e.g., cilostazol, clopidogrel), oral bisphosphonates (e.g., alendronate), other medications for arthritis (e.g., aspirin, methotrexate), "blood thinners" (e.g., enoxaparin, heparin, warfarin), corticosteroids (e.g., prednisone), cyclosporine, desmopressin, high blood pressure drugs (including KARIN inhibitors such as captopril, angiotensin II receptor antagonists such as losartan, and beta- blockers such as metoprolol), lithium, pemetrexed, "water pills" (diuretics such as furosemide, hydrochlorothiazide, triamterene). Check all prescription and nonprescription medicine labels carefully for other pain/fever drugs ( NSAIDs such as aspirin, celecoxib, naproxen). These drugs are similar to ibuprofen, so taking one of these drugs while also taking ibuprofen may increase your risk of side effects. Consult your doctor or pharmacist for more details. However, if your doctor has prescribed low doses of aspirin to prevent heart attack or stroke (usually at dosages of 81-325 milligrams a day), you should continue to take the aspirin. Daily use of ibuprofen may decrease aspirin 's ability to prevent heart attack/stroke. Talk to your doctor about using a different medication (e.g., acetaminophen) to treat pain/fever. If you must take ibuprofen, talk to your doctor about possibly taking immediate-release aspirin (not enteric-coated) while also taking the ibuprofen dose apart from your aspirin dose. Do not increase your daily dose of aspirin or change the way you take aspirin/other medications without your doctor's approval. This document does not contain all possible interactions. Therefore, before using this product, tell your doctor or pharmacist of all the products you use. Keep a list of all your medications with you, and share the list with your doctor and pharmacist. Sepsis Event Note - Evaluation Sepsis Screening Result: No Definite Risk - Focused Exam Vital Signs: Vital Signs Temp Pulse Resp BP Pulse Ox 04/13/19 08:40 36.7 C 102 H 18 125/79 99 Date Exam was Performed: 04/13/19 Time Exam was Performed: 12:24 - My Orders Last 24 Hours: My Active Orders 04/13/19 09:21 CULTURE STREP A CONFIRMATION [RM] Stat STREP SCRN A RAPID W CULT CONF [RM] Stat - Assessment/Plan Last 24 Hours: My Active Orders 04/13/19 09:21 CULTURE STREP A CONFIRMATION [RM] Stat STREP SCRN A RAPID W CULT CONF [RM] Stat
== END 2019-04-13 12:40 | disposition home or self-care (01) ==
LOC: MW.ED 08:32
DX: J02.9 Acute pharyngitis, unspecified (principal); F17.210 Nicotine dependence, cigarettes, uncomplicated
CPT/HCPCS: 36415; 70491; 80048; 80329; 83605; 84450; 84460; 85025; 85610; 85730; 86308; 87081; 87804; 87880; 96361; 96374; 99283; A9270; J2405; J7030; J8540; Q9967; 99284; G0480